=== PATIENT | male | born 1945 | race Caucasian/White ===

== ENCOUNTER 2016-10-20 01:49 | Emergency (ER) | payer MEDICARE ==
[~2016-10-20] VITALS: Ht 180.3 cm; Wt 82.3 kg
[2016-10-20 01:52] VITALS: BP 139/79; PULSE 67; RESP 12; O2SAT 98
--- NOTE | 2016-10-20 02:39 | ED.REPORT ---
HPI-General Illness Date of Service Oct 20, 2016 ED Provider: Trey Acevedo MD The pt is a 69 y/o male with a hx of HTN and CVA who presents to the ED via EMS from [facility] complaining of lightheadedness, onset a few hours ago. The pt associates his sx with HTN. His BP at the care center was around 150 systolic. In the ED, his BP is 139/79 and he reports feeling significantly better. He also reports dysuria. He denies recent fall, head trauma, vomiting, chest pain and any other localized pain. Nursing Notes Stated Complaint: HYPERTENSION Chief Complaint: General Complaint Nursing Notes Reviewed: Yes Allergies: Uncoded Allergies: PENICILLIN (Allergy, Unknown, 10/20/16) General Time Seen by MD: 02:37 Chief Complaint Other (lightheadedness) Hx Obtained From: Patient Arrived By: Ambulance Sudden in Onset?: Yes Onset Occurred: 5 - 8 hours ago Symptom Duration: Since onset Severity: Current: No pain currently Severity: Maximum: No pain Recent Healthcare: No recent doctor visit Past Medical History Past Medical History Reports: Hypertension, Stroke Past Surgical History none reported Smoking History Unknown if Ever Smoker Ambulatory Status Wheelchair (The pt uses a wheelchair but is typically able to transfer himself to and from the chair.) Review of Systems Denies: fall Denies: head trauma Denies: any localized pain Full Review of Systems Cardiovascular: Denies: Chest pain GI: Denies: Vomiting Male: Reports Dysuria Neurologic: Reports: Lightheaded Complete sys rev & neg: except as marked. Physical Exam Vital Signs Vital Signs Date Time Temp Pulse Resp B/P Pulse Ox O2 Delivery O2 Flow Rate FiO2 10/20/16 05:23 64 18 146/74 97 Room Air 10/20/16 03:17 84 134/77 10/20/16 03:17 68 134/74 10/20/16 01:52 36.9 67 12 139/79 98 Room Air Initial VS: Reviewed, Vital signs normal Head / Eyes: Atraumatic, Normocephalic Respiratory: Breath sounds normal, Clear to auscultation, No respiratory distress Cardiovascular: Regular rate & rhythm, Heart sounds normal, Intact distal pulses Abdomen / GI: Soft, Non-tender, No guarding, No rebound, No distention Extremities: Vascular intact, Neuro intact, No swelling, No tenderness Skin: Warm, Dry, No cyanosis General/Constitutional: Awake, Alert, No acute distress, Well appearing, Cooperative Neck: Atraumatic, Supple, Full range of motion, No JVD Neurologic: Speech NL, No motor deficits, No sensory deficits Mental Status: Positive: Disoriented to place, Disoriented to time Poor memory Interpretation & Diagnostics Lab Results Interpretation Test 10/20/16 03:30 Urine Color Yellow (YELLOW) Urine Appearance Cloudy (CLEAR,HAZY) Urine pH 6.0 (5.0-8.0) Urine Specific [place] 1.005 (1.003-1.035) Urine Protein Negativemg/dL (NEG,TRACE) Urine Glucose (UA) Negativemg/dL (NEGATIVE) Urine Ketones Negativemg/dL (NEGATIVE) Urine Occult Blood Large (NEGATIVE) Urine Nitrite Positive (NEGATIVE) Urine Bilirubin Negative (NEGATIVE) Urine Urobilinogen Normalmg/dL (NORMAL) Urine Leukocyte Esterase Large (NEGATIVE) Urine RBC 11-50/hpf (0-2) Urine WBC >50/hpf (0-5) Urine Epithelial Cells Occasional/hpf (NONE-MOD) Urine Crystals None seen (NONE SEEN) Urine Bacteria Moderate/hpf (NONE-FEW) Urine Hyaline Casts None/lpf (NONE) Urine Granular Casts None seen (NONE SEEN) Urine Waxy Casts None seen (NONE SEEN) Urine Red Blood Cell Casts None seen (NONE SEEN) Urine White Blood Cell Casts None seen (NONE SEEN) Urine Mucus None seen (None Seen) Urine Trichomonas None seen (NONE SEEN) Urine Yeast None (NONE SEEN) Urine Culture Reflexed Indicated ECG Interpretation ECG Interpretation: Normal sinus rhythm. Rate 66. Left bundle branch block. Time: 02:05 Interpreted by: ED physician Re-Eval/Medical Decision Med Decision/Clinical Course 71-year-old gentleman from a longterm who has nonspecific specifics symptoms and was noted by the longterm to have blood-tinged urine. He does have urinary tract infection. He was given IM Rocephin to be followed by [facility]. He is being discharged back to the emergency room Source of Hx: Old records Time of Eval: 04:58 Re-Evaluation/Progress Note: Rechecked pt. Discussed lab results, diagnosis and plan to discharge. Pt understands and agrees with the plan. F/U instruction and RTER warning given. All questions addressed. Counseled Regarding: Diagnosis, Need for follow-up, When/why to return to ED Discharge & Departure Primary Impression: UTI (urinary tract infection) Urinary tract infection type: site unspecified Hematuria presence: with hematuria Qualified Code: N39.0 - Urinary tract infection, site not specified Disposition: Home Discharge Condition All VS Reviewed: Yes Condition: Stable Patient Instructions: Urinary Tract Infection in Children (ED) Additional Instructions: The urine shows a urinary tract infection, culture pending. Jj received 2 g of IM Rocephin. This is to be followed by cephalexin (Keflex) 500 mg by mouth 3 times a day, #30 dispensed. Follow-up with repeat urinalysis. Referrals: OTHER,PHYSICIAN Scribe Attestation Portions of this note were transcribed by Dany Worley. I,, personally performed the history,physical exam and medical decision-making;I reviewed and confirmed the accuracy of the information in the transcribed note. Signed by Bess Martinez. 10/20/16 Trey Acevedo MD Oct 20, 2016 02:38 Dany Worley Oct 20, 2016 02:54
[2016-10-20 03:17] VITALS: BP_SYST 134; BP_DIAS 74; BP_DIAS 77; PULSE 68; PULSE 84
[2016-10-20] MEDS ORDERED: Lidocaine 2% 5 mL Urojet Topical Jelly Syringe MUC_MEMBRM ONE (03:25)
[2016-10-20 03:40] LABS: APPEARANCE,URINE CLOUDY (CLEAR,HAZY); COLOR,URINE YELLOW (YELLOW); OCCULT BLOOD,URINE LARGE (NEGATIVE); UROBILINOGEN,URINE NORMAL (NORMAL)
[2016-10-20] MEDS ORDERED: cefTRIAXone Inj 2,000 MG in Dextrose 5% Minibag Plus 50 ML IV ONE (04:20)
[2016-10-20] MEDS ORDERED: LIDOCAINE 1% IM ONE (04:30)
[2016-10-20] MEDS ORDERED: CEFTRIAXONE IM ONE (04:30)
[2016-10-20 05:23] VITALS: BP 146/74; PULSE 64; RESP 18; O2SAT 97
[2016-10-20] MEDS ORDERED: _Cephalexin 500 mg Capsule PO SCH (08:30)
== END 2016-10-20 05:24 | disposition home or self-care (01) ==
LOC: SED 01:49
DX: N39.0 Urinary tract infection, site not specified (principal); I10 Essential (primary) hypertension; Z86.73 Personal history of transient ischemic attack (TIA), and cerebral infarction without residual deficits
CPT/HCPCS: 81000; 87086; 87088; 93005; 96372; 99284; J0696